=== PATIENT | male | born 1990 | race Hispanic/Latino ===

== ENCOUNTER 2024-11-03 21:19 | Emergency (ER) | payer SELFPAY ==
--- NOTE | ~2024-11-03 | XR_ITS ---
EXAMINATION: XR chest 2V Exam Date/Time: 11/03/2024 21:44 CDT HISTORY: CP Comparison: None. RESULT: Lines, tubes, and devices: None. Lungs and pleura: Low volumes with crowding in the lateral view. Suggestion of mild reticulonodular opacities in the right lower lung. Cardiomediastinal silhouette: Stable. Other: No acute osseous or upper abdominal finding. IMPRESSION: Right lower lung opacities may represent atypical infection or respiratory bronchiolitis in the appro priate clinical context. Reviewed, dictated and finalized at location [facility]. IMPRESSION: Right lower lung opacities may represent atypical infection or respiratory bron chiolitis in the appropriate clinical context.
--- NOTE | 2024-11-03 21:23 | ECG_ITS ---
Test Date: 2024-11-03 21:32:36 Measurements Intervals [place] Rate: 105 P: 53 NV: 139 QRS: 53 QRSD: 92 T: 32 QT: 315 QTc: 417 Interpretive Statements SINUS TACHYCARDIA INCOMPLETE RIGHT BUNDLE BRANCH BLOCK BASELINE ARTIFACT- I, II, III, AVR, AVL, AVF, V1 BORDERLINE ECG No previous ECG available for comparison Electronically Signed On 11-04-2024 06:20:12 CDT by Heraclio Suarez D.O.
[2024-11-03 21:38] VITALS: BP 136/97; PULSE 103; RESP 20; TEMP 35.9; O2SAT 99
[2024-11-03 21:46] LABS: Basophils Absolute Auto 0.1 K/mm3 (0.0-0.1); Basophils Percent Auto 0.8 % (0.2-1.2); Eosinophils Absolute Auto 0.4 K/mm3 (0-0.3); Eosinophils Percent Auto 4.7 % (0-4.4); Hemoglobin 14.3 g/dL (14.0-18.0); Immature Granulocyte Absolute 0.02 K/mm3 (0.00-0.031); Immature Granulocyte Percent A 0.3 % (0-0.5); Lymphocytes Absolute Auto 2.67 K/mm3 (0.9-3.2); Mean Corpuscular Hemoglobin 31.7 pg (26-34); Mean Corpuscular Volume 93.1 fl (80-100); Mean Platelet Volume 10.7 fl (7.4-10.4); Monocytes Absolute Auto 0.5 K/mm3 (0.1-0.6); Neutrophils Percent Auto 52.2 % (45.5-73.1); Platelet Count Result 208 k/mm3 (150-375); Red Blood Count 4.51 M/mm3 (4.6-6.20); Red Cell Distribution Width 12.2 % (11.5-14.5); White Blood Count 7.6 K/mm3 (4.5-10.0)
[2024-11-03 21:57] LABS: Alanine Aminotransferase 33 U/L (6-50); Albumin Level 4.9 g/dL (3.5-5.1); Alkaline Phosphatase 85 U/L (38-126); Anion Gap 13 mmol/L (4-12); Aspartate Amino Transferase 30 U/L (17-59); Bilirubin,Total 0.6 mg/dL (0.2-1.3); Blood Urea Nitrogen 16 mg/dL (9-20); Calcium 9.1 mg/dL (8.4-10.2); Carbon Dioxide 23 mmol/L (22-30); Chloride 104 mmol/L (98-107); Estimated CRCL calculation 118 ml/min; Estimated Glomerular Filt Rate > 60; Glucose 112 mg/dL (65-110); Lipase 86 U/L (23-300); Potassium 3.7 mmol/L (3.4-5.0); Sodium 140 mmol/L (137-145)
[2024-11-03 22:08] LABS: Troponin I < 0.012 ng/mL (0.000-0.034)
[2024-11-03 23:00] VITALS: BP 130/96; PULSE 90; RESP 16; O2SAT 98
[2024-11-03 23:45] VITALS: O2SAT 99
--- NOTE | 2024-11-04 00:43 | ED_ITS ---
HPI - Chest Pain General Chief Complaint: Chest Pain Stated Complaint: Chest pain Time Seen by Provider: 11/04/24 00:38 Source: patient Mode of arrival: ambulatory Limitations: no limitations History of Present Illness HPI narrative: This is a 34-year-old male who presents to the ED for chief complaint of chest pain beginning around 2130 tonight. Patient states the pain lasts for about 5 minutes. States he has had these intermittent pain ongoing for the past 2 years. Reports pain on the left side of the chest that does not radiate. Denies association with nausea, vomiting, syncope, numbness, weakness or sweats. Denies recent illness, cough, fevers, chills, abdominal pain. Denies palpitations or leg swelling. Denies any history of blood clot or recent immobilization. Related Data Allergies Allergy/AdvReac Type Severity Reaction Status Date / Time No Known Allergies Allergy Verified 11/03/24 21:20 Review of Systems 2 Review of Systems: All systems as dictated in HPI Exam 2 Narrative: GENERAL: Well-appearing, well-nourished, and in no acute distress. HEAD: Normocephalic, atraumatic. EYES: PERRLA and EOMI. ENT: Nares clear, no rhinorrhea or epistaxis. Mucous membranes moist. Oropharynx without tonsillar hypertrophy exudate or other lesions. NECK: Supple. No adenopathy or masses. CHEST: No respiratory distress. Clear to auscultation. No wheezes rales or rhonchi HEART: Regular rate and rhythm. No murmur heard. Normal peripheral pulses. ABDOMEN: Soft, nontender, nondistended, normal active bowel sounds. MSK: Normal range of motion. No edema. SKIN: Warm, dry, no rash. NEURO: Alert and oriented x4. No focal deficits. PSYCH: Normal mood and affect. Course Vital Signs Vital signs: Vital Signs Temperature 96.7 F L 11/03/24 21:38 Pulse Rate 103 H 11/03/24 21:38 Respiratory Rate 20 11/03/24 21:38 Blood Pressure 136/97 H 11/03/24 21:38 Pulse Oximetry 99 11/03/24 21:38 Oxygen Delivery Room Air 11/03/24 21:38 Temperature 96.7 F L 11/03/24 21:38 Pulse Rate 85 11/04/24 01:01 Respiratory Rate 18 11/04/24 01:01 Blood Pressure 123/84 11/04/24 01:01 Pulse Oximetry 99 11/04/24 01:01 Oxygen Delivery Room Air 11/03/24 23:45 MDM - Chest Pain MDM Narrative Medical decision making narrative: This is a 34-year-old male who presents to the ED for chief complaint of chest pain beginning at 9:30 p.m.. Vitals are normal. Exam unremarkable. EKG shows sinus rhythm. His D-dimer is negative. Troponin negative. Lab work overall unremarkable. Chest x-ray: IMPRESSION: Right lower lung opacities may represent atypical infection or respiratory bronchiolitis in the appropriate clinical context. He will be given Rx for a Z-Son for possible atypical infection. Patient will be discharged in stable condition. Supportive measures discussed and return precautions given. Patient is understanding and agreeable with plan for discharge with PCP follow-up. Differential Diagnosis Differential diagnosis: Likely fracture of rib, pneumothorax, stable angina, unstable angina pectoris, atypical chest pain, st elevation myocardial infarction, costochondritis and chest pain Lab Data 11/03/24 21:37 11/03/24 21:37 Labs: Lab Results 11/03/24 11/03/24 Range/Units 21:37 21:37 WBC 7.6 (4.5-10.0) K/mm3 RBC 4.51 L (4.6-6.20) M/mm3 Hgb 14.3 (14.0-18.0) g/dL Hct 42.0 (42.0-52.0) % MCV 93.1 (80-100) fl MCH 31.7 (26-34) pg MCHC 34.0 (32-36) g/dl RDW 12.2 (11.5-14.5) % Plt Count 208 (150-375) k/mm3 MPV 10.7 H (7.4-10.4) fl Immature Gran % (Auto) 0.3 (0-0.5) % Neut % (Auto) 52.2 (45.5-73.1) % Lymph % (Auto) 35.0 (18.3-44.2) % [place] % (Auto) 7.0 (2.6-8.5) % Eos % (Auto) 4.7 H (0-4.4) % Baso % (Auto) 0.8 (0.2-1.2) % Lymph # (Auto) 2.67 (0.9-3.2) K/mm3 [place] # (Auto) 0.5 (0.1-0.6) K/mm3 Eos # (Auto) 0.4 H (0-0.3) K/mm3 Baso # (Auto) 0.1 (0.0-0.1) K/mm3 Abs Immat Gran (auto) 0.02 (0.00-0.031) K/mm3 Absolute Neuts (auto) 4.0 (1.3-6.7) K/mm3 Absolute Nucleated RBC 0.000 (0.0-0.012) K/mm3 Nucleated RBC % 0.0 (0.0-0.2) % PT 13.5 (11.1-14.7) Seconds INR 1.0 APTT 28.6 (22.3-36.8) Seconds D-Dimer Cancelled < 0.27 Sodium 140 (137-145) mmol/L Potassium 3.7 (3.4-5.0) mmol/L Chloride 104 (98-107) mmol/L Carbon Dioxide 23 (22-30) mmol/L Anion Gap 13 H (4-12) mmol/L BUN 16 (9-20) mg/dL Creatinine 0.79 (0.7-1.3) mg/dL Estim Creat Clear Calc 118 ml/min Estimated GFR > 60 (59 - ) Glucose 112 H (65-110) mg/dL Calcium 9.1 (8.4-10.2) mg/dL Total Bilirubin 0.6 (0.2-1.3) mg/dL AST 30 (17-59) U/L ALT 33 (6-50) U/L Alkaline Phosphatase 85 (38-126) U/L Troponin I < 0.012 (0.000-0.034) ng/mL Total Protein 8.0 (6.3-8.2) g/dL Albumin 4.9 (3.5-5.1) g/dL Lipase 86 (23-300) U/L ECG Data EKG #1: ECG completion date: 11/04/24 ECG completion time: 21:32 Interpretation: Sinus tachycardia Rate 105 Normal QRS Normal QTC No acute ischemic findings Discharge Plan Discharge Clinical Impression: Atypical chest pain, Abnormal chest x-ray Patient Disposition: Home Condition: Stable Instructions: Antibiotic Form Additional Instructions: Your exam and workup today are reassuring. There is a spot of possible atypical infection on the right lung on chest x-ray. Please take antibiotics as prescribed. Follow-up with PCP on this issue. Take Tylenol 500 mg and ibuprofen 600 mg every 6 hours as needed for pain. If you have any new or worsening symptoms please return to the ER for further evaluation. Patient Language: Romanian Prescriptions: New azithromycin [Zithromax Z-Son] 250 mg tablet See Rx Instructions .ROUTE .COMPLEX Qty: 6 0RF Rx Instructions: For 250 mg dose pack: take 500 mg today (day 1), then 250 mg for 4 days (days 2-5) acetaminophen [Tylenol Extra Strength] 500 mg tablet 500 mg PO Q6H PRN (Reason: fever or pain) Qty: 30 0RF ibuprofen 600 mg tablet 600 mg PO Q6H PRN (Reason: fever or pain) Qty: 30 0RF Follow-up/Referrals: Christal,BENI Lee [Non-Staff] - PHYSICIAN,[employer]RECTION OFFICER SUPERVISOR [Primary Care Provider] - Time of Disposition: 01:18 Quality HEART score for chest pain patients History: slightly suspicious ECG: normal Age: < or = to 45 years Risk factors: no risk factors known Troponin: < or = to 1x normal limit Heart score: 0
[2024-11-04 00:48] LABS: Partial Thromboplastin Time 28.6 Seconds (22.3-36.8); Prothrombin Time 13.5 Seconds (11.1-14.7)
[2024-11-04 01:01] VITALS: BP 123/84; PULSE 85; RESP 18; O2SAT 99
[2024-11-04 01:02] LABS: D Dimer < 0.27 ug/mL (<0.48)
== END 2024-11-04 01:52 | disposition home or self-care (01) ==
PROVIDERS: Student in an Organized Health Care Education/Training Program; Emergency Provider Physician Assistant
DX: R07.89 Other chest pain (principal); R91.8 Other nonspecific abnormal finding of lung field
CPT/HCPCS: 36415; 71046; 80053; 83690; 84484; 85025; 85380; 85610; 85730; 93005; 99284